=== PATIENT | female | born 1935 | race Caucasian/White ===

== ENCOUNTER 2017-06-01 07:44 | Outpatient (CLI) | payer MEDICARE, BC ==
--- NOTE | 2017-06-01 08:49 | RAD ---
ESOPHAGRAM: Date: 06/01/17 HISTORY: Dysphagia. FLUOROSCOPY: Total fluoroscopy time was 0.9 minutes with total dose of 3.009 Gy*cm^2. FINDINGS: Esophagus demonstrates normal primary esophageal peristalsis. No tertiary contractions are noted duri ng the exam. There is no focal narrowing or mucosal irregularity identified in the esophagus. A 12.5 mm barium tablet was administered during the exam which traverses the GE junction freely and without holdup. There is no evidence of a hiatal hernia and no gastroesophageal reflux is demonstrated during the exam. [employer] chest x-ray demonstrates chronic interstitial lung changes with symmetric biapical pleural and parenchymal scarring. No consolidation or pleural fluid is seen. Cardiac silhouette and pulmonary vas culature are within normal limits. There is S-shaped scoliotic curvature of the thoracolumbar spine. IMPRESSION: 1. No mucosal irregularity is seen in the esophagus, and there is no focal area of narrowing seen. 2. No evidence of hiatal hernia, and no gastroesophageal reflux was demonstrated during the exam. POS: JAY
== END 2017-06-01 07:45 | disposition home or self-care (01) ==
LOC: RAD 07:44
PROVIDERS: ATTEND Internal Medicine Gastroenterology
DX: R13.10 Dysphagia, unspecified (principal)
CPT/HCPCS: 74220

== ENCOUNTER 2018-01-23 12:03 | Outpatient (CLI) | payer MEDICARE, BC | END 2018-01-23 12:04 | disposition home or self-care (01) | LOC: BICMAMMO 12:03 | PROVIDERS: ATTEND Family Medicine | DX: Z12.31 Encounter for screening mammogram for malignant neoplasm of breast (principal) | CPT/HCPCS: 77063; 77067 ==

== ENCOUNTER 2019-01-26 10:36 | Outpatient (CLI) | payer MEDICARE, BC ==
--- NOTE | 2019-01-26 14:26 | MMO ---
Bilateral MAMMO Bilat Screen [facility]. CLINICAL HISTORY: Patient is 83 years old and is seen for screening. The patient has no family history of breast cancer. The patient has no personal history of cancer. The patient has a history of bilateral Excisional Biopsy - benign - .. VIEWS: The views performed were: bilateral craniocaudal with tomosynthesis and bilateral mediolateral oblique with tomosynthesis. FILMS COMPARED: The present examination has been compared to prior imaging studies performed at [facility] on 12/30/2014, 01/06/2016, 01/10/2017 and 01/23/2018. This study has been interpreted with the assistance of computer-aided detection. MAMMOGRAM FINDINGS: There are scattered fibroglandular densities. There are stable benign appearing calcifications seen in the left breast. There are no suspicious masses, suspicious calcifications, or new areas of architectural distortion. IMPRESSION: THERE IS NO MAMMOGRAPHIC EVIDENCE OF MALIGNANCY. A ROUTINE FOLLOW-UP MAMMOGRAM IN 1 YEAR IS RECOMMENDED. THE RESULTS OF THIS EXAM WERE SENT TO THE PATIENT. ACR BI-RADS Category 2 - Benign finding MAMMOGRAPHY NOTE: 1. A negative mammogram report should not delay a biopsy if a dominant of clinically suspicious mass is present. 2. Approximately 10% to 15% of breast cancers are not detected by mammography. 3. Adenosis and dense breasts may obscure an underlying neoplasm. Reported by: TIFFANY JACOBSON MD Electonically Signed: [id number]
== END 2019-01-26 10:37 | disposition home or self-care (01) ==
LOC: BICMAMMO 10:36
PROVIDERS: ATTEND Family Medicine
DX: Z12.31 Encounter for screening mammogram for malignant neoplasm of breast (principal)
CPT/HCPCS: 77063; 77067

== ENCOUNTER 2019-04-13 08:23 | Outpatient (CLI) | payer MEDICARE, BC ==
--- NOTE | 2019-04-13 09:14 | ULT ---
Focused ultrasound of the right lower quadrant: 04/13/2019 COMPARISON: None HISTORY: "Palpable area in right lower quadrant more prominent when bent over" TECHNIQUE: Multiplanar grayscale sonographic imaging of the right lower quadrant in the area of palpa ble concern is provided. The patient is imaged fall supine as well as while standing. No obvious hernia is seen in this region. Intra-abdominal/intrapelvic contents cannot be assessed on this exam. Standing imaging is performed with and without Valsalva, also demonstrating no evidence for a hernia. If clinically warranted, this area could be best assessed via CT. IMPRESSION: Unremarkable focused ultrasound of the right lower quadrant.
== END 2019-04-13 08:24 | disposition home or self-care (01) ==
LOC: BICULT 08:23
PROVIDERS: ATTEND Family Medicine
DX: K43.9 Ventral hernia without obstruction or gangrene (principal)
CPT/HCPCS: 76705

== ENCOUNTER 2019-05-07 08:31 | Outpatient (CLI) | payer MEDICARE, BC ==
--- NOTE | 2019-05-07 10:25 | CT ---
CT ABDOMEN AND PELVIS WITH AND WITHOUT IV CONTRAST: Date: 05/07/2019 INDICATION: Concern for right lower quadrant abdominal hernia. COMPARISON: Prior CT of thorax dated 05/22/[address] of chest/abdomen/pelvis dated 11/23/2008. FINDINGS: There is a stable 8 mm pulmonary nodule in the left lower lobe. There is a small, 4 mm, pulmonary nod ule in the right lower lobe which is also stable. No focal hepatic lesion is evident. The gallbladder is contracted. The visualized pancreas, adrenal glands, and kidneys appear within normal limits. Spleen is normal ap pearing. There are mild vascular calcifications involving the abdominopelvic vasculature. The visualized reproductive structures, bladder, rectum, and perirectal soft tissues appear within no rmal limits. There is a mild amount of retained stool within the colon. There is an age-indeterminate chronic-appearing mild compression fracture of L2. Prominent dextroscoliosis of the lumbar spine jose raul tered at T12-L1 is similar appearing. No definite acute osseous abnormality is evident. No definite right lower quadrant abdominal wall hernia or inguinal hernia is identified. No umbilical hernia is evident. No ventral abdominal wall hernia is evident. IMPRESSION: 1. No hernia identified. 2. Stable bilateral lower lobe pulmonary nodules. These are benign. 3. Age-indeterminate, chronic-appearing mild wedge compression fracture of L2. POS: BH
[2019-05-07] MEDS ORDERED: Iopamidol 370 76% 100 ML VIAL ONE (13:34)
== END 2019-05-07 08:32 | disposition home or self-care (01) ==
LOC: BICCT 08:31
PROVIDERS: ATTEND Family Medicine
DX: K43.9 Ventral hernia without obstruction or gangrene (principal); R91.8 Other nonspecific abnormal finding of lung field
CPT/HCPCS: 72193; 74170; 82565; Q9967

== ENCOUNTER 2020-01-29 08:34 | Outpatient (CLI) | payer MEDICARE, BC ==
--- NOTE | 2020-01-29 09:20 | MMO ---
Bilateral MAMMO Bilat Screen [facility]. CLINICAL HISTORY: Patient is 84 years old and is seen for screening. The patient has no family history of breast cancer. The patient has no personal history of cancer. The patient has a history of bilateral Excisional Biopsy - benign - .. VIEWS: The views performed were: bilateral craniocaudal with tomosynthesis and bilateral mediolateral oblique with tomosynthesis. FILMS COMPARED: The present examination has been compared to prior imaging studies performed at [facility] on 01/06/2016, 01/10/2017, 01/23/2018 and 01/26/2019. This study has been interpreted with the assistance of computer-aided detection. MAMMOGRAM FINDINGS: There are scattered fibroglandular densities. There are stable benign appearing calcifications seen in both breasts. There are no suspicious masses, suspicious calcifications, or new areas of architectural distortion. IMPRESSION: THERE IS NO MAMMOGRAPHIC EVIDENCE OF MALIGNANCY. A ROUTINE FOLLOW-UP MAMMOGRAM IN 1 YEAR IS RECOMMENDED. THE RESULTS OF THIS EXAM WERE SENT TO THE PATIENT. ACR BI-RADS Category 2 - Benign finding MAMMOGRAPHY NOTE: 1. A negative mammogram report should not delay a biopsy if a dominant of clinically suspicious mass is present. 2. Approximately 10% to 15% of breast cancers are not detected by mammography. 3. Adenosis and dense breasts may obscure an underlying neoplasm. Reported by: GIANLUCA LOYOLA MD Electonically Signed: [id number]
== END 2020-01-29 08:35 | disposition home or self-care (01) ==
LOC: BICMAMMO 08:34
PROVIDERS: ATTEND Family Medicine
DX: Z12.31 Encounter for screening mammogram for malignant neoplasm of breast (principal); Z91.89 Other specified personal risk factors, not elsewhere classified
CPT/HCPCS: 77063; 77067

== ENCOUNTER 2020-11-12 14:18 | Outpatient (CLI) | payer MEDICARE, BC ==
[~2020-11-12 14:18] MED LIST: Iopamidol-370 76% 500 ML 1 ML ONE
[2020-11-12 14:51] LABS: Estimated GFR-MDRD - POC Greater than 90
== END 2020-11-12 14:19 | disposition home or self-care (01) ==
LOC: BICCT 14:18
PROVIDERS: ATTEND Family Medicine
DX: R04.2 Hemoptysis (principal); J47.9 Bronchiectasis, uncomplicated; J98.4 Other disorders of lung
CPT/HCPCS: 71260; 82565

== ENCOUNTER 2021-02-09 08:12 | Outpatient (CLI) | payer MEDICARE, BC | END 2021-02-09 08:13 | disposition home or self-care (01) | LOC: BICMAMMO 08:12 | PROVIDERS: ATTEND Family Medicine | DX: Z12.31 Encounter for screening mammogram for malignant neoplasm of breast (principal); Z91.89 Other specified personal risk factors, not elsewhere classified | CPT/HCPCS: 77063; 77067 ==

== ENCOUNTER 2022-02-23 09:03 | Outpatient (CLI) | payer MEDICARE, BC | END 2022-02-23 09:04 | disposition home or self-care (01) | LOC: BICMAMMO 09:03 | PROVIDERS: ATTEND Family Medicine | DX: Z12.31 Encounter for screening mammogram for malignant neoplasm of breast (principal); Z80.3 Family history of malignant neoplasm of breast; Z91.89 Other specified personal risk factors, not elsewhere classified | CPT/HCPCS: 77063; 77067 ==

== ENCOUNTER 2023-03-10 08:55 | Outpatient (CLI) | payer MEDICARE, BC | END 2023-03-10 08:56 | disposition home or self-care (01) | LOC: BICMAMMO 08:55 | PROVIDERS: ATTEND Family Medicine | DX: Z12.31 Encounter for screening mammogram for malignant neoplasm of breast (principal); Z13.820 Encounter for screening for osteoporosis; M81.0 Age-related osteoporosis without current pathological fracture; M85.88 Other specified disorders of bone density and structure, other site; Z78.0 Asymptomatic menopausal state; Z80.3 Family history of malignant neoplasm of breast; Z91.89 Other specified personal risk factors, not elsewhere classified | CPT/HCPCS: 77063; 77067; 77080 ==

== ENCOUNTER 2024-02-24 08:20 | Outpatient (CLI) | payer MEDICARE, BC ==
[2024-02-24] MEDS ORDERED: Iopamidol 370 76% 100 ML VIAL ONE (08:47)
== END 2024-02-24 08:21 | disposition home or self-care (01) ==
LOC: CT 08:20
PROVIDERS: ATTEND Family Medicine
DX: R04.2 Hemoptysis (principal); I70.0 Atherosclerosis of aorta; E04.1 Nontoxic single thyroid nodule
CPT/HCPCS: 36415; 71260; 82565; Q9967

== ENCOUNTER 2024-12-27 12:14 | Outpatient (CLI) | payer MEDICARE, BC | END 2024-12-27 12:15 | disposition home or self-care (01) | LOC: BICMAMMO 12:14 | PROVIDERS: ATTEND Family Medicine | DX: M81.0 Age-related osteoporosis without current pathological fracture (principal); Z78.0 Asymptomatic menopausal state | CPT/HCPCS: 77080 ==